=== PATIENT | female | born 1995 | race African-American/Black ===

== ENCOUNTER 2018-06-19 19:00 | Emergency (ER) | payer OTHER ==
[2018-06-19 20:09] LABS: ABSOLUTE EOSINOPHILS # (AUTO) 0.1 10^3/uL (0.0-0.6); ABSOLUTE LYMPHOCYTES (AUTO) 2.2 10^3/uL (0.5-4.7); ABSOLUTE MONOCYTES (AUTO) 0.7 10^3/uL (0.1-1.4); ABSOLUTE NEUT (AUTO) 3.5 10^3/uL (1.7-8.2); BASOPHILS % (AUTO) 0.6 % (0-2); EOSINOPHILS % (AUTO) 1.6 % (0-6); HEMATOCRIT 37.8 % (36.0-47.0); HEMOGLOBIN 13.1 g/dL (12.0-15.5); LYMPHOCYTES % (AUTO) 33.7 % (13-45); MEAN CORPUSCULAR HEMOGLOBIN 28.4 pg (27.0-33.4); MEAN CORPUSCULAR HGB CONC 34.6 g/dL (32.0-36.0); MEAN CORPUSCULAR VOLUME 82 fl (80-97); MONOCYTES % (AUTO) 10.1 % (3-13); PLATELET COUNT 296 10^3/uL (150-450); RED CELL DISTRIBUTION WIDTH 13.2 % (11.5-14.0); TOTAL CELLS COUNTED % (AUTO) 100 %; WHITE BLOOD COUNT 6.6 10^3/uL (4.0-10.5)
--- NOTE | 2018-06-19 20:10 | ER Document Report ---
ED General - General Chief Complaint: Abdominal Pain Stated Complaint: ABDOMINAL PAIN Time Seen by Provider: 06/19/18 19:34 Notes: Very well-appearing 22-year-old female presents to the emergency department with chief complaint of periumbilical pain that is sharp and intermittent in nature around her bellybutton that radiates slightly to the left. She states is been going on for 3 days, is intermittent, has associated nausea, no vomiting. Initially pain was 8/10 but has improved to 3/10 since being in the emergency department. She denies fever, chills, shortness of breath, chest pain, urinary symptoms, vaginal discharge. Of note, she had a hernia surgery at 4 years old. Also, she was seen 1 year ago for similar symptoms, an ultrasound was done, but nothing was found at that time. TRAVEL OUTSIDE OF THE [place] IN LAST 30 DAYS: No - Related Data Allergies/Adverse Reactions: No Known Allergies Allergy (Verified 06/19/18 19:23) Past Medical History - General Information source: Patient - Social History Smoking Status: Never Smoker Chew tobacco use (# tins/day): No Frequency of alcohol use: Occasional Drug Abuse: None Family History: Reviewed & Not Pertinent Patient has suicidal ideation: No Patient has homicidal ideation: No Renal/ Medical History: Denies: Hx Peritoneal Dialysis Review of Systems - Review of Systems Constitutional: See HPI EENT: No symptoms reported Cardiovascular: See HPI Respiratory: See HPI Gastrointestinal: See HPI Genitourinary: See HPI Female Genitourinary: See HPI Musculoskeletal: No symptoms reported Skin: No symptoms reported Hematologic/Lymphatic: No symptoms reported Neurological/Psychological: No symptoms reported Physical Exam - Vital signs Vitals: Temp Pulse Resp BP Pulse Ox 98.1 F 63 16 115/68 100 06/19/18 19:04 06/19/18 19:04 06/19/18 19:04 06/19/18 19:04 06/19/18 19:04 - Notes Notes: PHYSICAL EXAMINATION: Reviewed vital signs and charting by RN GENERAL: Well-appearing, well-nourished and in no acute distress. HEAD: Atraumatic, normocephalic. EYES: Pupils equal round, extraocular movements intact, sclera anicteric, conjunctiva are normal. ENT: nares patent. Moist mucous membranes. NECK: Normal range of motion LUNGS: Breath sounds clear to auscultation bilaterally and equal. No wheezes rales or rhonchi. HEART: Regular rate and rhythm without murmurs ABDOMEN: Soft, very mild tenderness to palpation periumbilical area just to the left of the umbilicus, normoactive bowel sounds. No guarding, no rebound. No masses appreciated. EXTREMITIES: Normal range of motion, no pitting or edema. No cyanosis. NEUROLOGICAL: Face symmetric. PSYCH: Normal mood, normal affect. SKIN: Warm, Dry, normal turgor, no rashes or lesions noted. Course - Re-evaluation Re-evalutation: 06/19/18 20:10 Very well-appearing 22-year-old female presents to the emergency department for periumbilical pain that radiates slightly to the left. She had similar symptoms 1 year ago, got an ultrasound which showed no evidence of concerning symptoms per patient. Plan is to get some basic blood work and limited ultrasound of the abdomen. 06/19/18 21:10 Blood work was all normal. Urinalysis negative for UTI. Abdominal ultrasound negative for free fluid or mass. Discussed with patient findings and told her it could potentially be related to gas versus potential adhesions from childhood surgery. At this time due to the location I do not believe it is related to an ovarian torsion or TOA as she does not have symptoms consistent with those. She is stable for discharge. - Vital Signs Vital signs: Temp Pulse Resp BP Pulse Ox 98.9 F 63 20 112/75 100 06/19/18 21:08 06/19/18 21:08 06/19/18 21:08 06/19/18 21:08 06/19/18 21:08 - Laboratory Result Diagrams: 06/19/18 20:00 06/19/18 20:00 Laboratory results interpreted by me: 06/19/18 19:36 Urine Ascorbic Acid 20 H Discharge - Discharge Clinical Impression: Abdominal pain Qualifiers: Abdominal location: periumbilical Qualified Code(s): R10.33 - Periumbilical pain Instructions: Abdominal Pain ([facility]) Additional Instructions: You are seen in the emergency department this evening for abdominal pain. Your workup revealed no concerning findings as your lab work and ultrasound was normal. Please note that you should follow-up with a primary care doctor and investigate this problem as in the emergency department we rule out emergent conditions. I have given you a list of providers in the area but as I recommended please [place] [employer] [place] If you develop severe intractable abdominal pain that does not improve at all, you pass out due to the pain, or you have dizziness or lightheadedness related to severe pain please return to the emergency department. If you have any other concerning symptoms please return to the emergency department. Referrals: [facility] [Provider Group] - Follow up as needed
[2018-06-19 20:13] LABS: APPEARANCE,URINE CLEAR; BILIRUBIN,URINE NEGATIVE (NEGATIVE); COLOR,URINE YELLOW; GLUCOSE, URINE NEGATIVE (NEGATIVE); KETONES,URINE NEGATIVE (NEGATIVE); LEUKOCYTE ESTERASE,URINE NEGATIVE (NEGATIVE); NITRITE,URINE NEGATIVE (NEGATIVE); PROTEIN,URINE NEGATIVE (NEGATIVE); UROBILINOGEN,URINE NEGATIVE mg/dL (<2.0)
[2018-06-19 20:26] LABS: ALANINE AMINOTRANSFERASE 24 U/L (9-52); ALBUMIN 4.4 g/dL (3.5-5.0); ALKALINE PHOSPHATASE 39 U/L (38-126); ANION GAP 6 (5-19); ASPARTATE AMINO TRANSFERASE 14 U/L (14-36); BILIRUBIN,DIRECT 0.1 mg/dL (0.0-0.4); BILIRUBIN,TOTAL 0.2 mg/dL (0.2-1.3); BLOOD UREA NITROGEN 12 mg/dL (7-20); CALCIUM 9.6 mg/dL (8.4-10.2); CARBON DIOXIDE 29 mmol/L (22-30); CHLORIDE 104 mmol/L (98-107); GLUCOSE 85 mg/dL (75-110); POTASSIUM 4.1 mmol/L (3.6-5.0); SODIUM 139.4 mmol/L (137-145)
--- NOTE | 2018-06-19 20:56 | RADIOLOGY REPORT (SQ) ---
US ABDOMEN LIMITED HISTORY: Periumbilical pain. COMPARISON: None. TECHNIQUE: Grayscale and color Doppler imaging of the periumbilical region was performed. FINDINGS: The periumbilical area was scanned and demonstrates no acute findings. No mass or free fluid is identified. IMPRESSION: No sonographic abnormalities.
[2018-06-19 21:09] VITALS: BP 112/75
== END 2018-06-19 21:18 | disposition home or self-care (01) ==
LOC: ER 19:00
DX: R10.33 Periumbilical pain (principal); R11.0 Nausea; Z87.19 Personal history of other diseases of the digestive system; Z98.890 Other specified postprocedural states
CPT/HCPCS: 36415; 76705; 80053; 81001; 81025; 85025; 99284